=== PATIENT | female | born 1990 | race Caucasian/White ===

== ENCOUNTER 2017-03-22 22:47 | Emergency (ER) | payer OTHER ==
[~2017-03-22] VITALS: Ht 170.2 cm; Wt 83.2 kg
--- NOTE | 2017-03-22 22:50 | NUR ---
PATIENT AMBULATED TO ER BED 12.
[2017-03-22 22:51] VITALS: BP 146/80
--- NOTE | 2017-03-22 23:10 | NUR ---
Patient being evaluated by DR. MARTINEZ at bedside.
--- NOTE | 2017-03-22 23:11 | NUR ---
26Y/F PT. PRESENST TO ED WITH SORE THROAT X 2 DAYS. PT. STAES HAVING FEVER, SORE THROAT, HEADACHE. PT. S/P ECTOPIC REMOVAL X 1 MONTH, SUTURE AT ABDOMEN. NO MEDICAL HX. AAO X4, AMBULATORY WITH SETDAY GAIT. RESPIRATIONS ROOM AIR, EVEN AND UNALBORED, C/O SORE THROAT , ABDOMINAL PAIN, HEADACHE 10/10. ABDOMEN SUTURE AT SX. SITE, MINIMAL DRAINAGE, VSS, ER MADE AWARE OF PT. STATUS.
[2017-03-22] MEDS ORDERED: KETOROLAC 60 MG/2 ML VIAL IM ONE (23:15)
[2017-03-22] MEDS ORDERED: METOCLOPRAMIDE 10 MG/2 ML INJ VIAL IM ONE (23:15)
[2017-03-23 00:08] LABS: ALBUMIN 3.4 g/dL (3.4-5.0); CARBON DIOXIDE 28.7 mmol/L (21-32); CREATININE 0.7 mg/dL (0.6-1.3); POTASSIUM 3.7 mmol/L (3.5-5.1); TOTAL BILIRUBIN 0.2 mg/dL (0.0-1.0)
[2017-03-23 00:10] LABS: HEMATOCRIT 48.5 % (36-48); HEMOGLOBIN 15.4 g/dL (12.0-16.0); MEAN CORPUSCULAR HEMOGLOBIN 24 pg (27-31); MEAN CORPUSCULAR HGB CONC 32 g/dL (33-37); MEAN CORPUSCULAR VOLUME 75 fL (80-94); PLATELET COUNT (AUTO) 304 K/uL (140-450); RED BLOOD CELL COUNT(AUTO) 6.44 MIL/uL (4.20-5.40); RED CELL DISTRIBUTION WIDTH 14.9 % (11.6-13.7); WHITE BLOOD COUNT (AUTO) 8.3 K/uL (4.8-10.8)
[2017-03-23 00:15] LABS: LYMPHOCYTES % (MANUAL) 38 % (20-46); MONOCYTES % (MANUAL) 6 % (5-12)
[2017-03-23] MEDS ORDERED: fentaNYL 0.05 MG/ML VIAL IM ONE (00:25)
[2017-03-23 01:25] VITALS: BP 130/75
--- NOTE | 2017-03-23 01:26 | NUR ---
Patient discharged with v/s stable. Written and verbal after care instructions given and explained. Patient alert, oriented and verbalized understanding of instructions. Ambulatory with steady gait. All questions addressed prior to discharge. ID band removed. Patient advised to follow up with PMD. Rx of REGLAN 10 MG. NAPROSYN 375 MG given. Patient educated on indication of medication including possible reaction and side effects. Opportunity to ask questions provided and answered.
== END 2017-03-23 01:26 | disposition home or self-care (01) ==
LOC: MED 22:47
DX: G43.909 Migraine, unspecified, not intractable, without status migrainosus (principal); R10.9 Unspecified abdominal pain; R03.0 Elevated blood-pressure reading, without diagnosis of hypertension
CPT/HCPCS: 36415; 76817; 80053; 81002; 81025; 85025; 96372; 99285; J1885; J2765; J3010

== ENCOUNTER 2017-03-26 22:53 | Emergency (ER) | payer OTHER ==
[~2017-03-26] VITALS: Ht 160 cm; Wt 79.8 kg
[2017-03-26 22:55] VITALS: BP 125/79
--- NOTE | 2017-03-26 23:00 | NUR ---
SENT BACK TO LOBBY VIA W/C IN STABLE CONDITION, ARMIDA NOTED AND ORDER MEDS. CARRIED OUT.
--- NOTE | 2017-03-26 23:05 | NUR ---
MEDICATED PER ERMD S ORDER, PATIENT TOLERATED WELL. SENT TO [facility] VIA W/C WITH THE [employer].
[2017-03-26] MEDS: IBUPROFEN 800 MG TAB PO ONE (23:08)
[2017-03-26] MEDS ORDERED: IBUPROFEN 800 MG TAB ONE (23:16)
--- NOTE | 2017-03-27 01:00 | NUR ---
PATIENT STILL IN PAIN, ERMD NOTED.
--- NOTE | 2017-03-27 02:30 | NUR ---
PATIENT STILL COMPLAINING OF PAIN, ERMD NOTED AND SHE WANTED TO TALK THE DOCTOR.
--- NOTE | 2017-03-27 02:40 | NUR ---
PATIENT IS A 26 Y/O FEMALE WHO PRESENTS TO THE ED C/O ELBOW PAIN. PT STATES, "I HURT MY ELBOW THE OTHER DAY." PT REPORTS 8/10 ACHING ELBOW PAIN THAT DOES NOT RADIATE. NO OBVIOUS DEFORMITY OR OPEN BLEEDING. PT DENIES CP, SOB, N/V/D. PT AAOX4, RR EVEN/UNLABORED. PT REPOSITIONED FOR COMFORT, BED IN LOWEST POSITION. ER MD DR. HAWKINS NOTIFIED. WILL CONTINUE TO MONITOR.
[2017-03-27] MEDS ORDERED: KETOROLAC 60 MG/2 ML VIAL IM ONE (03:25)
[2017-03-27 03:50] VITALS: BP 120/82
--- NOTE | 2017-03-27 03:50 | NUR ---
Patient discharged with v/s stable. Written and verbal after care instructions given and explained. Patient alert, oriented and verbalized understanding of instructions. Ambulatory with steady gait. All questions addressed prior to discharge. ID band removed. Patient advised to follow up with PMD. Rx of MOTRIN, ZOFRAN AND NORCO given. Patient educated on indication of medication including possible reaction and side effects. Opportunity to ask questions provided and answered.
[2017-03-27] MEDS: MORPHINE SULFATE 4 MG/ML SYR IM ONE (04:02)
[2017-03-27] MEDS: ONDANSETRON 4 MG/2 ML VIAL IM ONE (04:03)
[2017-03-27] MEDS: ONDANSETRON 4 MG ODT PO ONE (04:04)
== END 2017-03-27 03:50 | disposition home or self-care (01) ==
LOC: MED 22:53
DX: S50.01XA Contusion of right elbow, initial encounter (principal); X58.XXXA Exposure to other specified factors, initial encounter; Y93.89 Activity, other specified; Y92.89 Other specified places as the place of occurrence of the external cause; Y99.8 Other external cause status
CPT/HCPCS: 73080; 96372; 99284; J2270; J2405; J1885; S0119

== ENCOUNTER 2019-03-13 21:58 | Emergency (ER) | payer OTHER ==
[~2019-03-13] VITALS: Ht 160 cm; Wt 79.8 kg
[2019-03-13 22:25] VITALS: BP 151/100
--- NOTE | 2019-03-13 22:28 | NUR ---
TO LOBBY A/W BED AMBULATORY
[2019-03-13 23:05] LABS: APPEARANCE,URINE SL CLOUDY (CLEAR); BILIRUBIN,URINE 1+ (NEGATIVE); BLOOD, URINE TRACE-I (NEGATIVE); COLOR,URINE YELLOW (YELLOW); LEUKOCYTE ESTERASE ,URINE NEGATIVE (NEGATIVE); NITRITE, URINE NEGATIVE (NEGATIVE); UGLUCOSE NEGATIVE (NEGATIVE)
[2019-03-13 23:16] LABS: WBC,URINE 0-5 /HPF (0-5)
--- NOTE | 2019-03-13 23:28 | NUR ---
PT TAKEN TO BED 9
--- NOTE | 2019-03-13 23:38 | NUR ---
28 Y/O F PRESENTS TO ED WITH C/O LOWER ABDOMINAL PAIN WITH N/V/D AND LOW BACK PAIN X2 DAYS. 9/10 SHARP, CONSTANT PAIN. + APPETITE CHANGES. PT REPORTS USING JAMAL-SELZTER, LAXATIVE, AND TYLENOL WITH NO RELIEF OF SYMPTOMS. ABDOMINAL SOFT WITH MILD TENDERNESS. PT DENIES HEAMTURIA AND DYSURIA. - FLANK TENDERNESS. PT REPORTS HAVING CONDITION OF POLYCYTHEMIA, PT STATES THAT SHE HAS NOT HAD HER WEEKLY TREATMENT IN 1 YEAR BECAUSE SHE STOPPED GOING; RETURNS TO [place] TOMORROW DUE TO SYMPTOMS RETURN. PT ATTACHED TO MONITOR. BEDRAILX 1 UP. WILL CONTINUE TO MONITOR.
[2019-03-14] MEDS ORDERED: NACL 0.9% 1,000 ML IV ONE (00:26)
[2019-03-14] MEDS ORDERED: ONDANSETRON 4 MG/2 ML VIAL IVP ONE (00:30)
[2019-03-14] MEDS ORDERED: KETOROLAC 30 MG/ML VIAL IVP ONE (00:30)
[2019-03-14 00:40] LABS: EOSINOPHILS # (AUTO) 0.1 K/uL (0-0.4); LYMPHOCYTES # (AUTO) 2.7 K/uL (2.5-16.5); MONOCYTES # (AUTO) 0.8 K/uL (0.8-1.0); WHITE BLOOD COUNT (AUTO) 9.2 K/uL (4.8-10.8)
[2019-03-14 00:49] LABS: BASOPHILS # (AUTO) 0.1 K/uL (0.00-0.22); BASOPHILS % (AUTO) 0.8 % (0.0-2.0); EOSINOPHILS % (AUTO) 0.9 % (0.0-4.0); LYMPHOCYTES % (AUTO) 29.5 % (20.5-51.1); MEAN CORPUSCULAR HEMOGLOBIN 25 pg (27-31); MEAN CORPUSCULAR HGB CONC 32 g/dL (33-37); MEAN CORPUSCULAR VOLUME 78.9 fL (80-94); MONOCYTES % (AUTO) 8.8 % (1.7-9.3); NEUTROPHILS # (AUTO) 5.5 K/uL (1.8-7.7); PLATELET COUNT (AUTO) 250 K/uL (140-450); RED BLOOD CELL COUNT(AUTO) 7.23 MIL/uL (4.20-5.40)
[2019-03-14 00:56] LABS: ALBUMIN 3.5 g/dL (3.4-5.0); ANION GAP 14.8 (8-16); CARBON DIOXIDE 24.8 mmol/L (21-32); CREATININE 0.7 mg/dL (0.6-1.3); POTASSIUM 3.6 mmol/L (3.5-5.1); TOTAL BILIRUBIN 0.5 mg/dL (0.0-1.0)
--- NOTE | 2019-03-14 01:03 | NUR ---
PATIENT TAKEN TO CT SCAN
[2019-03-14 01:12] LABS: HEMOGLOBIN 18.4 g/dL (12.0-16.0)
--- NOTE | 2019-03-14 01:21 | NUR ---
PATIENT BACK FROM CT
[2019-03-14] MEDS ORDERED: MORPHINE SULFATE 4 MG/ML SYR IVP ONE (01:30)
[2019-03-14 02:58] VITALS: BP 117/88
--- NOTE | 2019-03-14 02:58 | NUR ---
Patient discharged with v/s stable. Written and verbal after care instructions ABOUT ABDOMINAL PAIN AND POLYCYTHEMIA VERA given and explained. Patient alert, oriented and verbalized understanding of instructions. Ambulatory with steady gait. All questions addressed prior to discharge. ID band removed. Patient advised to follow up with PMD. Rx of NAPROSYN AND NORCO given. Patient educated on indication of medication including possible reaction and side effects. Opportunity to ask questions provided and answered. 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
--- NOTE | 2019-03-15 12:13 | NUR ---
Late entry. Confirmed with RN that 0.9 NS IV started at 0040 and completed at 0140
== END 2019-03-14 02:58 | disposition home or self-care (01) ==
LOC: MED 21:58
DX: R10.9 Unspecified abdominal pain (principal); Z98.890 Other specified postprocedural states; R11.2 Nausea with vomiting, unspecified; R51 Headache
CPT/HCPCS: 36415; 74176; 80053; 81001; 81025; 83690; 85025; 87086; 96374; 96375; 99284; J1885; J2270; J2405